=== PATIENT | female | born 1950 | race Caucasian/White ===

== ENCOUNTER 2023-09-15 13:24 | Outpatient (AMB) | payer MEDICARE, SELFPAY ==
--- NOTE | 2023-09-15 13:34 | MHC.OFFVIS ---
Vital Signs 09/15/23 13:38 Height 5 ft Weight 130 lb BMI 25.4 BP 134/75 Blood Pressure Location Lt brachial Position Sitting Pulse 70 Intake Visit Reasons: loose stool & poss colonoscopy Intake Note: Patient new consult for pre colonoscopy screening. Patient cc: gassy, diarrhea and bloating. 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 Colonoscopy 1 1/2 years ago at [facility]-she is somewhat confused- with details- dates Thyroid meds changes - over pass year Appetite is fairly good however she does admit to anxiety this does affect her day-to-day She denies nausea, vomiting, abdominal pain fever or chills PFSH Surgical History History of right knee surgery Hx of rotator cuff surgery Hx of section Social History (Updated 09/15/23 @ 14:07 by Tatiana Wilson PA-C) Household Members: Family Household Members Other:: lives with son Alcohol intake: current Alcohol intake frequency: holidays/special occasions only Patient Tobacco Use Status: Never used Tobacco Review of Systems Const All systems reviewed & are unremarkable except as noted in HPI and below Card Denies chest pain and Denies dyspnea Resp Denies dyspnea GI Denies abdominal pain, Denies hematochezia, Denies heartburn and Reports loose stools Psych Reports anxiety Physical Exam Vital Signs: Last Vital Signs Pulse 70 09/15/23 13:38 BP 134/75 09/15/23 13:38 BMI result Body Mass Index 25.4 Const General: healthy appearing, no acute distress and anxious Orientation/consciousness: patient oriented x3 Limitations: no limitations Eyes Sclerae: sclerae normal Resp Effort & Inspection: normal respiratory effort and able to speak in complete sentences Auscultation: clear to auscultation bilaterally, no rales, no rhonchi and no wheezes Cardio Rate: regular rate Rhythm: regular rhythm Heart sounds: S1 normal heart sound present and S2 normal heart sound present GI Palpation (GI): Soft to palpation and nontender Auscultation: normal bowel sounds Neuro General: patient oriented x3 Extrem General: Yes full ROM Psych Speech and movement: Pressured speech present Affect: Anxious affect present Attitude: cooperative Thought process: Flight of ideas present Thought content: suicidality, no homicidality and no delusions Results Reviewed Results Reviewed: CT- [facility]-to be scanned Assessment & Plan Assessment & Plan (1) History of adenomatous polyp of colon: Comment: GI history timing/details unclear Code(s): Z86.010 - Personal history of colonic polyps Category: Medical Plan: Will update as appropriate (2) Abnormal CT of the abdomen: Comment: colitis Code(s): R93.5 - Abnormal findings on diagnostic imaging of other abdominal regions, including retroperitoneum Category: Medical (3) Chronic diarrhea: Code(s): K52.9 - Noninfective gastroenteritis and colitis, unspecified Category: Medical Plan: May continue Imodium Dicyclomine (4) Anxiety: Comment: May play a role-will follow-up with her prior to colonoscopy further assess lab if need will add EGD Code(s): F41.9 - Anxiety disorder, unspecified Category: Medical Plan colonoscopy MG prep send to lab pls F/U with me 6-8 weeks TY Orders: Orders Colonoscopy - GI Use Only 09/15/23 R93.5 - Abnormal findings on diagnostic imaging of other abdominal regions, including retroperitoneum, Z86.010 - Personal history of colonic polyps Complete Blood Count Auto Diff 09/15/23 K52.9 - Noninfective gastroenteritis and colitis, unspecified Comprehensive Met. Panel 09/15/23 K58.9 - Irritable bowel syndrome without diarrhea Thyroid Stimulating Hormone 09/15/23 R19.8 - Other specified symptoms and signs involving the digestive system and abdomen Transglutaminase IgA 09/15/23 R19.7 - Diarrhea, unspecified Calprotectin, Fecal Today R19.7 - Diarrhea, unspecified CDiff Gene PCR Today R19.7 - Diarrhea, unspecified Erythrocyte Sedimentation Rate 09/15/23 R19.7 - Diarrhea, unspecified Endomysial IgA rflx Titer 09/15/23 K52.9 - Noninfective gastroenteritis and colitis, unspecified, R93.5 - Abnormal findings on diagnostic imaging of other abdominal regions, including retroperitoneum Gliadin Ab Panel 09/15/23 K52.9 - Noninfective gastroenteritis and colitis, unspecified, R93.5 - Abnormal findings on diagnostic imaging of other abdominal regions, including retroperitoneum C Reactive Protein 09/15/23 K52.9 - Noninfective gastroenteritis and colitis, unspecified, R93.5 - Abnormal findings on diagnostic imaging of other abdominal regions, including retroperitoneum Medications: New bisacodyl (Dulcolax (bisacodyl)) Day before procedure @ 12 noon Take 4 tablets by mouth followed by large glass of water 20 mg (4 x 5 mg) PO ONCE PRN 4 tabs 0RF colonoscopy prep 1 day Z12.11 - Encounter for screening for malignant neoplasm of colon polyethylene glycol 3350 (Miralax) Take as directed by mouth the day before your procedure. 238 grams PO ONCE 238 grams 0RF laxative effect 1 day Patient Instructions: Extremely anxious 72-year-old female GI history unclear-presents with diarrhea- Will update labs, stool studies Will schedule for colonoscopy follow-up with me prior to procedure for further progress and review labs and stool tests. Patient encouraged to call questions or concerns She agrees with the plan
[2023-09-15 13:38] VITALS: BP 134/75; PULSE 70; BMI 25.4
== END 2023-09-15 14:22 | disposition home or self-care (01) ==
PROVIDERS: PCP Internal Medicine; Referring Provider Internal Medicine; Visit Provider Physician Assistant
DX: K52.9 Noninfective gastroenteritis and colitis, unspecified (principal); Z86.010 Personal history of colon polyps; R93.5 Abnormal findings on diagnostic imaging of other abdominal regions, including retroperitoneum; F41.9 Anxiety disorder, unspecified
CPT/HCPCS: 99204

== ENCOUNTER 2023-09-15 13:24 | Outpatient (REF) | payer MEDICARE, SELFPAY ==
[2023-09-15 14:50] LABS: MANUAL DIFF FLAG NO
[2023-09-15 15:30] LABS: Basophils Absolute Auto 0.1 X10*3/uL (0.0-0.2); Basophils Percent Auto 0.8 % (0-2); Eosinophils Absolute Auto 0.1 X10*3/uL (0.0-0.4); Hematocrit 40.3 % (37.0-47.0); Hemoglobin 13.4 g/dl (12.0-16.0); Imm Gran Abs Auto 0.02 X10*3/uL (0.00-0.03); Imm Gran Pct Auto 0.3 % (0.0-0.4); Lymphocytes Absolute Auto 1.4 X10*3/uL (1.2-4.9); Lymphocytes Percent Auto 21.4 % (20-40); Mean Corpuscular HGB Conc 33.3 g/dl (31.0-35.0); Mean Corpuscular Hemoglobin 30.9 pg (27.0-33.0); Mean Corpuscular Volume 93.1 fL (80.0-98.0); Monocytes Absolute Auto 0.7 X10*3/uL (0.1-1.2); Monocytes Percent Auto 9.9 % (2-11); Neutrophils Absolute Auto 4.3 x10*3/uL (2.0-8.3); Neutrophils Percent Auto 65.6 % (45-73); Platelet Count 265 X10*3/uL (160-400); Red Blood Count 4.33 X10*6/uL (4.20-5.50); Red Cell Distribution Width 12.6 % (11.0-16.0); White Blood Count 6.6 X10*3/uL (4.8-10.8)
[2023-09-15 16:19] LABS: Erythrocyte Sedimentation Rate 7 MM/HR (0-20)
[2023-09-15 16:28] LABS: Alanine Aminotransferase 26 U/L (0-31); Albumin Level 4.3 g/dL (3.5-5.0); Alkaline Phosphatase 64 U/L (39-117); Anion Gap 10 (12-20); Aspartate Amino Transferase 30 U/L (5-31); Bilirubin Total 0.5 mg/dL (0.0-1.0); Blood Urea Nitrogen 15 mg/dL (9-16); C Reactive Protein 0.17 mg/dL (< or = 0.50); Calcium 9.2 mg/dL (8.4-10.2); Carbon Dioxide 28 mmol/L (22-29); Chloride 107 mmol/L (96-108); Estimated Glomerular Filt Rate > 60; Glucose Random 86 mg/dL (60-115); Potassium 3.9 mmol/L (3.3-5.1); Sodium 141 mmol/L (135-145); Total Protein 7.3 g/dL (6.5-8.0)
[2023-09-15 16:44] LABS: Thyroid Stimulating Hormone 0.88 uIU/mL (0.32-4.0)
[2023-09-16 13:38] LABS: Gliadin Deamidated IgA Ab <1.0 U/mL; Gliadin Deamidated IgG Ab <1.0 U/mL; Transglutaminase IgA <1.0 U/mL
[2023-09-18 12:59] LABS: Endomysial IgA Antibody Negative (Negative)
== END 2023-09-15 13:25 | disposition home or self-care (01) ==
LOC: HO.LAB 13:24
PROVIDERS: PCP Internal Medicine; Referring Provider Internal Medicine; Visit Provider Physician Assistant
DX: K52.9 Noninfective gastroenteritis and colitis, unspecified (principal); R19.8 Other specified symptoms and signs involving the digestive system and abdomen; R93.5 Abnormal findings on diagnostic imaging of other abdominal regions, including retroperitoneum
CPT/HCPCS: 36415; 80053; 84443; 85025; 85652; 86140; 86231; 86258; 86364; 99202

== ENCOUNTER 2023-09-20 10:45 | Outpatient (REF) | payer MEDICARE, SELFPAY ==
[2023-09-20 11:45] LABS: CDiff Gene PCR NEGATIVE (Negative)
[2023-09-25 21:39] LABS: Calprotectin, Fecal 35 mcg/g
== END 2023-09-20 10:46 | disposition home or self-care (01) ==
LOC: HO.LNP 10:45
PROVIDERS: Visit Provider Physician Assistant
DX: R19.7 Diarrhea, unspecified (principal)
CPT/HCPCS: 83993; 87493

== ENCOUNTER 2023-11-03 14:01 | Outpatient (AMB) | payer MEDICARE, SELFPAY ==
[2023-11-03 14:03] VITALS: BP 135/72; BMI 25.4
--- NOTE | 2023-11-03 14:03 | A.OFFVIS_ITS ---
Vital Signs 11/03/23 14:03 Height 5 ft Weight 130 lb BMI 25.4 BP 135/72 Blood Pressure Location Lt brachial Position Sitting Intake Visit Reasons: per bibiana Intake Note: Patient follow up for lab results Patient cc: abdominal bloating, and very loose stool and she can not wait when she have to go to bathroom she will some accident going to the bathroom. 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 Accompanied by: Self / Same As Patient Allergies amoxicillin Allergy (Intermediate, Verified 11/03/23 14:02) Unknown Medication List - Last Reconciled 11/03/23 by Bibiana Wilson PA-C bisacodyl (Dulcolax (bisacodyl)) 20 mg (4 x 5 mg) PO ONCE PRN 1 day levothyroxine 75 mcg PO DAILY lisinopril 10 mg PO DAILY loperamide 2 mg PO Q6H PRN polyethylene glycol 3350 (Miralax) 238 grams PO ONCE 1 day HPI Comments Details: An extremely anxious- 72-year-old female follows up for progress-she c/o loose stool with urgency Seen initially with unclear GI history had been seen previously [place] had CT treated with dicyclomine per patient report We had scheduled her for colonoscopy and recommended blood work to be done She is here to discuss further plan of care- she says she is better- She was taking loperamide with good response- but stopped taking it unless-she goes out. She has had a change in thyroid medications with good response- No nausea, vomiting, abdominal pain fever or chills She is scheduled for colonoscopy in November Declined EGD [facility] Surgical History History of right knee surgery Hx of rotator cuff surgery Hx of section Social History Household Members: Family Household Members Other:: lives with son Alcohol intake: current Alcohol intake frequency: holidays/special occasions only Patient Tobacco Use Status: Never used Tobacco Review of Systems Const All systems reviewed & are unremarkable except as noted in HPI and below GI Denies abdominal pain, Denies hematochezia, Reports loose stools, Denies nausea and Denies vomiting Psych Reports anxiety Physical Exam Vital Signs: Last Vital Signs BP 135/72 11/03/23 14:03 BMI result Body Mass Index 25.4 Const General: cooperative, healthy appearing, comfortable, no acute distress and anxious Orientation/consciousness: patient oriented x3 Limitations: no limitations Resp Effort & Inspection: normal respiratory effort and able to speak in complete sentences GI Palpation (GI): Soft to palpation and nontender Auscultation: normal bowel sounds Neuro General: patient oriented x3 Extrem General: Yes full ROM Psych Appearance: grossly normal and well kempt Mental Status: mental status grossly normal Speech and movement: Clear speech present Affect: Anxious affect present Attitude: cooperative Assessment & Plan Assessment & Plan (1) Anxiety: Comment: May play a role-will follow-up with her prior to colonoscopy further assess lab if need will add EGD Code(s): F41.9 - Anxiety disorder, unspecified Category: Medical (2) Chronic diarrhea: Comment: continue imodium probiotic Code(s): K52.9 - Noninfective gastroenteritis and colitis, unspecified Category: Medical Plan AGAIN in detail reviewed MG prep- AGAIN reviewed medication lists Patient Instructions: Show for appointment- reviewed prep and medications need for escort Coding Level of Care Code Est Pt Level 4 (29736) Diagnoses Anxiety F41.9 Chronic diarrhea K52.9 Time Spent (min) 30
== END 2023-11-03 14:55 | disposition home or self-care (01) ==
PROVIDERS: PCP Internal Medicine; Visit Provider Physician Assistant
DX: F41.9 Anxiety disorder, unspecified (principal); K52.9 Noninfective gastroenteritis and colitis, unspecified
CPT/HCPCS: 99214

== ENCOUNTER → 2023-11-03 14:01 | Outpatient (BNVA) | payer MEDICARE, SELFPAY | PROVIDERS: PCP Internal Medicine; Visit Provider Physician Assistant | DX: F41.9 Anxiety disorder, unspecified (principal); K52.9 Noninfective gastroenteritis and colitis, unspecified | CPT/HCPCS: 99212 ==

== ENCOUNTER 2023-12-14 09:47 | Day surgery (SDC) | payer MEDICARE, SELFPAY ==
--- NOTE | 2023-12-13 12:50 | HO.ANESPROP2 ---
Documented by User: Agnes Roberts NP 12/13/23 12:50 HPI - Anesthesia Eval Consult details Narrative: 73yo F for Colonoscopy PMFSH Active Problems Active Problems: All Active Problems Anxiety (Acute) Chronic diarrhea (Acute) Abnormal CT of the abdomen (Acute) History of adenomatous polyp of colon (Acute) Past Medical History Medical History Thyroid disease HTN (hypertension) Surgical History Surgical History History of right knee surgery Hx of rotator cuff surgery Hx of section Social History Social History Household Members: Family Household Members Other:: lives with son Alcohol intake: current Alcohol intake frequency: holidays/special occasions only Patient Tobacco Use Status: Never used Tobacco Use of substances other than those prescribed or required for medical reasons: No Are you DNR?: No Advance Directives: No Advance Directives Information Provided: Yes Meds Allergies Allergy/AdvReac Type Severity Reaction Status Date / Time amoxicillin Allergy Intermediate Unknown Verified 11/03/23 14:02 Home Medications ?Medication ?Instructions ?Recorded ?Confirmed ?Last Taken ?Type levothyroxine 75 mcg capsule 75 mcg PO Q OTHER DAY 09/15/23 12/14/23 History lisinopril 10 mg tablet 10 mg PO DAILY 09/15/23 Unknown History loperamide 2 mg tablet 2 mg PO Q6H PRN 09/15/23 Unknown History levothyroxine 50 mcg tablet 50 mcg PO Q OTHER DAY 12/14/23 12/14/23 Unknown History Exam Pertinent Lab Results Pertinent Lab Results: Laboratory Tests 09/15/23 14:49 WBC 6.6 Hgb 13.4 Hct 40.3 Plt Count 265 Sodium 141 Potassium 3.9 Chloride 107 Carbon Dioxide 28 BUN 15 Creatinine 0.91 Assessment and Plan Assessment Anesthesia Assessment: Chart Reviewed Documented by User: Debbi Peacock MD 12/14/23 12:50 [facility] Past Medical History Medical History Thyroid disease HTN (hypertension) Family History Family history of problems with anesthesia: No Surgical History Surgical History History of right knee surgery Hx of rotator cuff surgery Hx of section History of Problems with Anesthesia: No Social History Social History Household Members: Family Household Members Other:: lives with son Alcohol intake: current Alcohol intake frequency: holidays/special occasions only Patient Tobacco Use Status: Never used Tobacco Use of substances other than those prescribed or required for medical reasons: No Are you DNR?: No Advance Directives: No Advance Directives Information Provided: Yes Meds Allergies Allergy/AdvReac Type Severity Reaction Status Date / Time amoxicillin Allergy Intermediate Unknown Verified 11/03/23 14:02 Home Medications ?Medication ?Instructions ?Recorded ?Confirmed ?Last Taken ?Type levothyroxine 75 mcg capsule 75 mcg PO Q OTHER DAY 09/15/23 12/14/23 History lisinopril 10 mg tablet 10 mg PO DAILY 09/15/23 Unknown History loperamide 2 mg tablet 2 mg PO Q6H PRN 09/15/23 Unknown History levothyroxine 50 mcg tablet 50 mcg PO Q OTHER DAY 12/14/23 12/14/23 Unknown History Exam Airway Mallampati Class: II TM Dist: >3cm Neck ROM: Full Heart: rrr Lungs: ta Assessment and Plan Assessment Anesthesia Assessment: Anesthesia Plan Discussed Final Anesthetic Review Family History of Problems with Anesthesia: No History of Problems with Anesthesia: No NPO: Yes ASA Class: III Final Preanesthetic Review: No Changes in Pt Med Stat, Meds/Allgs Chart Reviewed, Consent Obtained/Reviewed and Anes Risks/Benef Reviewed Patient Risk: Intermediate Procedure Risk: Low Anesthetic Plan Anesthetic Plan: MAC: Disposition: Standard PACU
[2023-12-14 10:29] VITALS: BMI 24.4
[2023-12-14 10:48] VITALS: BP 136/81; PULSE 64; RESP 16; TEMP 35.9; O2SAT 99
--- NOTE | 2023-12-14 11:17 | P.HPSUR_ITS ---
Pre-Procedural Eval Section A - 24 Hr Update-Section A only Date of Service: 12/14/23 Section B - Complete if H&P > 30 days Chief Complaint: Abnormal findings on diagnostic imaging of other Details of Present Illness: diarrhea Relevant Family History (Specify if Yes): No Relevant Social History: None Present Medications: see Short Stay Collaborative assessment Medical History: Significant History (Thyroid disease HTN (hypertension)) History of Previous Operations: Relevant previous surgery/procedure and date(s) (History of right knee surgery Hx of rotator cuff surgery Hx of section) Allergies: Allergies Allergy/AdvReac Type Severity Reaction Status Date / Time amoxicillin Allergy Intermediate Unknown Verified 11/03/23 14:02 Review of Systems Sugical H&P ROS: Negative: Constitution, Cardiovascular, Respiratory, Neuro logical, Psychiatric, Hem-Onc, Allergic/Immunologic, Gastrointestinal, Genitourinary, Musculoskeletal, Integumentary, Endocrine and Eyes/Ears/Nose/Throat Exam Surgical H&P Exam: Normal: HEENT, Normal: Heart, Normal: Lungs, Normal: Extremities, Normal: Abdomen, Normal: Skin and Normal: Neurological Plan Diagnosis/Plan: Unchanged I have reviewed the history and physical and performed a pertinent physical examination on my patient. No changes have occurred unless specified. Time Spent With Patient Time: Total time managing care of this patient today ____ minutes.
--- NOTE | 2023-12-14 12:19 | P.OPN-COLO_ITS ---
Colonoscopy Operative Note Operative Note Date of Service: 12/14/23 Narrative: Operative Information Procedure Description: Colonoscopy Indication: diarrhea Anesthesia: MAC COLONOSCOPY Instrument: Olympus variable stiffness pediatric scope 190L Colonoscopy Monitoring: Vital signs and clinical assessment, continuous EKG monitoring, Pulse oximetry, Carbon Dioxide monitoring and blood pressure monitoring were done throughout the procedure. Colon withdrawal time was 20 minutes. Procedure: The patient was placed in the left lateral decubitis position and pre-procedure medications were administered. After a digital rectal examination of the ano-rectum, the video colonoscope was inserted into the rectum and advanced through the colon to the cecum/TI. The colonoscope was slowly withdrawn in a retrograde panoramic fashion and the colon mucosa was carefully examined including a retroflexed view of the rectum. Findings and interventions are described below. Procedure Difficulty: moderate Findings: Terminal Ileum-normal, random bx taken Random bx taken from right and left colon, Cecum:normal Ascending Colon: 12-15 mm flat polyp rasied with eleview then removed piece meal with cold snare -x 1 clip applied for hemostasis Transverse Colon -normal Descending Colon:normal Sigmoid Colon: normal Rectum: Retroflexion with small internal hemorrhoids seen, grade I Anorectum - normal Intervention: cold snare, eleview injection and clip Colon preparation: [place] Bowel Preparation Scale Right colon; 2 Transverse colon: 2 Left colon; 2 (0 = Unprepared colon segment with mucosa not seen due to solid stool that cannot be cleared. 1 = Portion of mucosa of the colon segment seen, but other areas of the colon segment not well seen due to staining, residual stool and/or opaque liquid. 2 = Minor amount of residual staining, small fragments of stool and/or opaque liquid, but mucosa of colon segment seen well. 3 = Entire mucosa of colon segment seen well with no residual staining, small fragments of stool or opaque liquid) Impression and Post Procedure Diagnosis: diverticulosis colon polyp internal hemorrhoids Plan: High fiber diet leaflet Avoid straining at stool, epsom salts and sitz bath, anusol supps or cream Repeat Colonoscopy in 3 years due to flat subtle polyp removed or earlier if clinically indicated Above findings were reviewed with the patient and relevant handouts were provided if indicated.
[2023-12-14 13:16] VITALS: BP 98/56; PULSE 74; RESP 16; TEMP 36.1; O2SAT 100
[2023-12-14 13:31] VITALS: BP 107/63; PULSE 71; RESP 16; TEMP 36.1; O2SAT 98
[2023-12-14 13:56] LABS: CDiff Gene PCR NEGATIVE (Negative)
== END 2023-12-14 14:19 | disposition home or self-care (01) ==
PROVIDERS: PCP Internal Medicine; Visit Provider Internal Medicine Gastroenterology
PROC: 0DJD8ZZ Inspection of Lower Intestinal Tract, Via Natural or Artificial Opening Endoscopic (ICD-10-PCS; CPT 45378; principal; 2023-12-14 12:20)
DX: D12.2 Benign neoplasm of ascending colon (principal); K52.831 Collagenous colitis; K57.30 Diverticulosis of large intestine without perforation or abscess without bleeding; K64.0 First degree hemorrhoids; Z86.010 Personal history of colon polyps; I10 Essential (primary) hypertension; Z79.899 Other long term (current) drug therapy
CPT/HCPCS: 45381; 45385; 45380; 87493; 88305; J2704

== ENCOUNTER → 2023-12-14 09:47 | Outpatient (BNV) | payer MEDICARE, SELFPAY | PROVIDERS: PCP Internal Medicine; Visit Provider Internal Medicine Gastroenterology | DX: K52.9 Noninfective gastroenteritis and colitis, unspecified (principal); K63.5 Polyp of colon; K64.8 Other hemorrhoids | CPT/HCPCS: 45380; 45381; 45385 ==